=== PATIENT | male | born 1965 | race African-American/Black ===

== ENCOUNTER 2023-08-23 20:39 | Emergency (ER) | payer OTHER, SELFPAY ==
[2023-08-23 20:41] VITALS: BP 155/101; PULSE 74; RESP 20; TEMP 36.6; O2SAT 96
[2023-08-23 22:32] VITALS: BP 148/95; PULSE 78; RESP 15; TEMP 36.6; O2SAT 98
--- NOTE | 2023-08-24 00:20 | ED.DENTAL ---
HPI - Dental/Oral General Chief complaint: Dental/Oral Stated complaint: dental pain Time Seen by Provider: 08/23/23 23:16 Source: patient Mode of arrival: EMS Limitations: no limitations History of Present Illness HPI Narrative: Patient is a 58-year-old male who presents the ED via EMS with report of left lower dental pain. Patient reports having pain along teeth #23-21 in his left lower gumline for the last 1 month. He was prescribed antibiotics recently and reported improvement of discomfort, however states he has had increased pain again over the last couple of days. He has been taking aspirin and Tylenol without much improvement. Scheduled to see a dentist at the end of September. Denies fevers, difficulty breathing or swallowing, drainage from tooth, vomiting. Related Data Allergies Allergy/AdvReac Type Severity Reaction Status Date / Time No Known Allergies Allergy Verified 08/23/23 20:46 Review of Systems Review of Systems: CONSTITUTIONAL: Denies fever, chills, or sweats. ENT: See HPI. RESPIRATORY: Denies dyspnea. GASTROINTESTINAL: Denies nausea, vomiting All systems reviewed & are unremarkable except as noted in HPI and below Exam Narrative: GENERAL: Well appearing, morbidly obese with BMI of 41.9, non-toxic, in no acute distress. HEAD: Normocephalic, atraumatic. ENT: Diffuse dental decay, scattered dental caries. Several teeth with gum recession down to root, several loose teeth. Tenderness along gumline in left lower mouth, gum inflammation noted. No focal abscess or areas of fluctuance. No drainage. No trismus. No tonsillar hypertrophy or exudate. RESPIRATORY: Airway patent, respirations nonlabored. No stridor or distress. CARDIOVASCULAR: Regular rate and rhythm MUSCULOSKELETAL: Moves all extremities. No gross deformities. SKIN: Warm, dry, normal color. NEURO: A&O X3. Speech clear. PSYCHIATRIC: Appropriate mood and affect. Normal interaction. Course Vital Signs Vital signs: Vital Signs Temperature 97.9 F 08/23/23 20:41 Pulse Rate 74 08/23/23 20:41 Respiratory Rate 20 08/23/23 20:41 Blood Pressure 155/101 H 08/23/23 20:41 Pulse Oximetry 96 08/23/23 20:41 Oxygen Delivery Room Air 08/23/23 20:41 Temperature 97.8 F 08/23/23 22:32 Pulse Rate 78 08/23/23 22:32 Respiratory Rate 15 08/23/23 22:32 Blood Pressure 148/95 H 08/23/23 22:32 Pulse Oximetry 98 08/23/23 22:32 Oxygen Delivery Room Air 08/23/23 20:41 MDM - Dental/Oral MDM Narrative Medical decision making narrative: Patient's pain is consistent with dental caries. There are no focal signs of space-occupying abscess. The patient is controlling secretions well without signs of airway compromise. Patient is felt reasonable for outpatient follow-up with dental evaluation. Patient given list of dentists for follow-up. Will prescribe Augmentin. Recommended he continue Tylenol and ibuprofen as needed for pain. Given return precautions. Discharged in stable condition. Medical Records Attestation: I reviewed the patient's medical records. Discharge Plan Discharge Clinical Impression: Dental caries, Toothache Patient Disposition: Home, Self-Care Condition: Stable Instructions: Antibiotic Form, Toothache (ED) Additional Instructions: Take antibiotics as prescribed. Continue ibuprofen and Tylenol as needed for pain. Follow-up with dentist for further evaluation. Return to the ED if you experience worsening or severe pain, difficulty breathing or swallowing, unable to keep down food or drink, persistent fevers, or any other symptoms of concern. Prescriptions: New amoxicillin-pot clavulanate 875-125 mg tablet 1 tablet PO Q12H 7 Days Qty: 14 0RF ibuprofen 800 mg tablet 800 mg PO TID PRN (Reason: pain) Qty: 20 0RF Follow-up/Referrals: UNKNOWN,DOCTOR [Primary Care Provider] - Time of Disposition: 00:22
[2023-08-24] MEDS: HYDROcodone/acetaminophen (*CRX) 5-325 MG TABLET 1 TAB PO (00:43)
[2023-08-24] MEDS: AMOXICILLIN/CLAVULANATE K 875-125 MG TAB 1 TABLET PO (00:43)
== END 2023-08-24 01:10 | disposition home or self-care (01) ==
PROVIDERS: Emergency Provider Physician Assistant
DX: K02.9 Dental caries, unspecified (principal)
CPT/HCPCS: 99283; A9270